=== PATIENT | male | born 1960 | race Caucasian/White ===

== ENCOUNTER 2017-02-04 16:06 | Emergency (ER) | payer SELFPAY ==
[~2017-02-04] VITALS: Ht 177.8 cm; Wt 94.7 kg
[~2017-02-04 16:06] MED LIST: 1-ME1LIQ PO; CEPH500C3 PO
[2017-02-04 16:15] VITALS: BP 160/70; PULSE 89; RESP 18; TEMP 97.9; O2SAT 96
[2017-02-04] MEDS ORDERED: GABA600T PO (16:32)
[2017-02-04] MEDS ORDERED: MELO7.5T4 PO (16:32)
[2017-02-04] MEDS ORDERED: SERT-129 PO (16:32)
[2017-02-04] MEDS ORDERED: LIDOCAINE HCL 1% 50 ML VIAL INFIL ONE (16:45)
--- NOTE | 2017-02-04 16:46 | PD ---
HPI Chief Complaint: Laceration/Skin Injury Time Seen by Provider: 16:35 Travel History International Travel<30 days: No Contact w/Intl Traveler<30days: No Traveled to known affect area: No History of Present Illness HPI 56-year-old right-handed male presents to the emergency room for evaluation of laceration to his left thumb that occurred just prior to arrival. Patient was using a razor blade when it slipped and he cut his left thumb. States he applied pressure but the bleeding continued so he came to the emergency room. Patient denies significant pain or loss of range of motion. Last tetanus was 2 years ago. PFSH Past Medical History Autoimmune Disease: No Depression: Yes Cancer: No Cardiovascular Problems: No Chemotherapy: No Diminished Hearing: No Endocrine: No GERD: No Genitourinary: No Hiatal Hernia: No Hypertension: Yes Immune Disorder: No Musculoskeletal: Yes Neurologic: Yes Psychiatric: Yes Reproductive: No Respiratory: No Immunizations Current: Yes Radiation Therapy: No Sickle Cell Disease: No Ulcer: No Influenza Vaccination: No ?: Not Past Surgical History Neurologic Surgery: Yes (C3-C4 and C4-C5 fusion) Oral Surgery: Yes Tonsillectomy: Yes Other Surgery: Yes Social History Alcohol Use: Yes (SOCIALLY) Tobacco Use: Yes (7 A DAY) Substance Use: No Allergies-Medications (Allergen,Severity, Reaction): Coded Allergies: No Known Allergies (Unverified , 02/04/17) Reported Meds & Prescriptions Reported Meds & Active Scripts Active Reported Sertraline (Sertraline HCl) 100 Mg Tab 100 Mg PO DAILY Meloxicam 7.5 Mg Tab 7.5 Mg PO DAILY Gabapentin 600 Mg Tab 600 Mg PO TID Review of Systems Except as stated in HPI: all other systems reviewed are Neg Physical Exam Narrative GENERAL: Well-nourished, well-developed male in no acute distress. Afebrile. Ambulatory. SKIN: Focused skin assessment warm/dry. There is a 2 cm well approximated, superficial laceration to the left thumb on the radial side. Nonbleeding. HEAD: Normocephalic. EYES: No scleral icterus. No injection or drainage. NECK: Supple, trachea midline. No JVD or lymphadenopathy. CARDIOVASCULAR: Regular rate and rhythm without murmurs, gallops, or rubs. RESPIRATORY: Breath sounds equal bilaterally. No accessory muscle use. MUSCULOSKELETAL: No cyanosis, or edema. Full range of motion of the left thumb. Data Data Last Documented VS Vital Signs Date Time Temp Pulse Resp B/P (MAP) Pulse Ox O2 Delivery O2 Flow Rate FiO2 02/04/17 16:15 97.9 89 18 160/70 (100) 96 Orders Orders Lidocaine 1% Inj (50 Ml) (Xylocaine 1% I (02/04/17 16:45) MDM Medical Decision Making Medical Screen Exam Complete: Yes Emergency Medical Condition: Yes Medical Record Reviewed: Yes Differential Diagnosis Laceration, avulsion, contusion, abrasion Narrative Course 56-year-old right-handed male presents to the emergency room for evaluation of laceration to his left thumb that occurred just prior to arrival. Patient accidentally cut himself with a brand-new razor. Tetanus is up-to-date. Physical exam reveals well approximated, superficial, 2 cm laceration to the left thumb on the radial side. Nonbleeding. Patient has full range of motion of the thumb and less than 2 second capillary refill distally. Laceration was cleansed and repaired, see procedure for details. Patient discharged with wound care instructions and told to follow up with primary care physician for worsening symptoms. He understands and agrees to plan. Procedures Procedure Narrative LACERATION LOCATION: Left thumb LENGTH: 2 cm NUMBER OF STITCHES/[place]: 5 simple interrupted REPAIR: The area of the laceration was prepped with Betadine and sterilely draped. The laceration was infiltrated with 1% lidocaine. The wound was copiously irrigated and explored without evidence of foreign body, tendon injury or neurovascular injury. The wound was closed using 5-0 Prolene. This was a single layer repair. A sterile dressing was applied. The patient was advised to keep the dressing clean and dry. Patient tolerated the procedure well. Diagnosis Primary Impression: Laceration of left thumb Qualified Codes: S61.012A - Laceration without foreign body of left thumb without damage to nail, initial encounter Referrals: Primary Care Physician Additional Instructions: Keep wound clean and dry. Apply triple antibiotic ointment daily. Sutures out in 10 days. Take ibuprofen with food as directed, as needed for pain. Follow-up with a primary care physician. Return to the emergency room for worsening symptoms. Disposition: 01 DISCHARGE HOME Condition: Stable Tyra Vizcarra Feb 04, 2017 16:46
== END 2017-02-04 17:45 | disposition home or self-care (01) ==
LOC: PHEFT 16:06
DX: S61.012A Laceration without foreign body of left thumb without damage to nail, initial encounter (principal); I10 Essential (primary) hypertension; Z72.0 Tobacco use; Z86.59 Personal history of other mental and behavioral disorders; Z87.39 Personal history of other diseases of the musculoskeletal system and connective tissue; Z86.69 Personal history of other diseases of the nervous system and sense organs; W45.8XXA Other foreign body or object entering through skin, initial encounter
CPT/HCPCS: 12001